=== PATIENT | male | born 1930 | race Caucasian/White ===

== ENCOUNTER → 2016-08-17 | Outpatient (CLI) | payer MEDICARE, OTHER ==
[~2016-08-17] MED LIST: ACET325T51 PO; ALBU2.5V2 AEROSOL; ATOR10TA64 PO; DICL500C PO; DOCU-168 PO; FINA5TAB42 PO; GLIM2TAB3 PO; LISI-625 PO; MAGN30OR PO; METF500T4 PO; MULT-587 PO; OXYC-544 PO; OXYC10TA57 PO; POLY17PO6 PO; [UNRECOGNIZED DRUG - CODE] PO
== END ==
LOC: NWCC 08:08
PROVIDERS: ATTEND Internal Medicine
DX: T81.4XXA Infection following a procedure, initial encounter (principal); Y83.8 Other surgical procedures as the cause of abnormal reaction of the patient, or of later complication, without mention of misadventure at the time of the procedure; B95.61 Methicillin susceptible Staphylococcus aureus infection as the cause of diseases classified elsewhere
CPT/HCPCS: 11042; 97605; A6021

== ENCOUNTER → 2016-08-24 | Outpatient (CLI) | payer MEDICARE, OTHER ==
[~2016-08-24] MED LIST changes: -ATOR10TA64 PO; +SALINE FLUSH 10ml SYRINGE IVF ONE
== END ==
LOC: NWCC 09:04
PROVIDERS: ATTEND Internal Medicine
DX: T81.89XA Other complications of procedures, not elsewhere classified, initial encounter (principal); Y83.8 Other surgical procedures as the cause of abnormal reaction of the patient, or of later complication, without mention of misadventure at the time of the procedure; B95.61 Methicillin susceptible Staphylococcus aureus infection as the cause of diseases classified elsewhere
CPT/HCPCS: 15002; 15271; 97605; A6207; A6237; Q4172

== ENCOUNTER → 2016-08-31 | Outpatient (CLI) | payer MEDICARE, OTHER ==
[~2016-08-31] MED LIST changes: -SALINE FLUSH 10ml SYRINGE IVF ONE
== END ==
LOC: NWCC 10:30
PROVIDERS: ATTEND Internal Medicine
DX: T81.4XXA Infection following a procedure, initial encounter (principal); Y83.8 Other surgical procedures as the cause of abnormal reaction of the patient, or of later complication, without mention of misadventure at the time of the procedure; S60.812A Abrasion of left wrist, initial encounter; B95.61 Methicillin susceptible Staphylococcus aureus infection as the cause of diseases classified elsewhere; Z91.81 History of falling
CPT/HCPCS: 15002; 15271; 97605; A6207; A6209; A6237; G0463; Q4172

== ENCOUNTER → 2016-09-07 | Outpatient (CLI) | payer MEDICARE, OTHER | LOC: NWCC 10:22 | PROVIDERS: ATTEND Internal Medicine | DX: T81.4XXA Infection following a procedure, initial encounter (principal); Y83.8 Other surgical procedures as the cause of abnormal reaction of the patient, or of later complication, without mention of misadventure at the time of the procedure; B96.89 Other specified bacterial agents as the cause of diseases classified elsewhere; S60.812A Abrasion of left wrist, initial encounter; Z91.81 History of falling | CPT/HCPCS: 15002; 15271; 97605; A6207; A6210; A6237; G0463; Q4172 ==

== ENCOUNTER → 2016-09-14 | Outpatient (CLI) | payer MEDICARE, OTHER ==
[~2016-09-14] MED LIST changes: +SALINE FLUSH 10ml SYRINGE IVF ONE
== END ==
LOC: NWCC 10:20
PROVIDERS: ATTEND Internal Medicine
DX: T81.4XXA Infection following a procedure, initial encounter (principal); Y83.8 Other surgical procedures as the cause of abnormal reaction of the patient, or of later complication, without mention of misadventure at the time of the procedure; S60.812A Abrasion of left wrist, initial encounter; Z91.81 History of falling; B96.89 Other specified bacterial agents as the cause of diseases classified elsewhere
CPT/HCPCS: 15002; 15271; 97605; A6207; G0463; Q4172

== ENCOUNTER → 2016-09-21 | Outpatient (CLI) | payer MEDICARE, OTHER ==
[~2016-09-21] MED LIST changes: -SALINE FLUSH 10ml SYRINGE IVF ONE
== END ==
LOC: NWCC 09:47
PROVIDERS: ATTEND Internal Medicine
DX: T81.4XXA Infection following a procedure, initial encounter (principal); Y83.8 Other surgical procedures as the cause of abnormal reaction of the patient, or of later complication, without mention of misadventure at the time of the procedure; B96.89 Other specified bacterial agents as the cause of diseases classified elsewhere
CPT/HCPCS: 15004; 15275; 97605; A6207; A6237; Q4172

== ENCOUNTER → 2016-10-09 | Outpatient (CLI) | payer MEDICARE, OTHER | LOC: NWCC 14:36 | PROVIDERS: ATTEND Internal Medicine | DX: T81.4XXA Infection following a procedure, initial encounter (principal); Y83.8 Other surgical procedures as the cause of abnormal reaction of the patient, or of later complication, without mention of misadventure at the time of the procedure; B95.61 Methicillin susceptible Staphylococcus aureus infection as the cause of diseases classified elsewhere | CPT/HCPCS: 11042; 97605; A6021 ==